=== PATIENT | female | born 1995 | race Caucasian/White ===

== ENCOUNTER 2019-04-03 23:16 | Observation (INO) | payer MEDICAID, OTHER ==
[~2019-04-03] VITALS: Ht 152.4 cm; Wt 56.7 kg
[2019-04-03] MEDS ORDERED: PREN1TAB78 MT (23:37)
[2019-04-03] MEDS ORDERED: FOLI-43 MT (23:37)
[2019-04-03] MEDS ORDERED: FERR-71 MT (23:37)
[2019-04-04 00:26] LABS: CLARITY URINE CLEAR (CLEAR); COLOR URINE YELLOW (YELLOW); KETONES URINE NEGATIVE (NEGATIVE); LEUKOCYTE ESTERASE URINE NEGATIVE (NEGATIVE); NITRITE URINE NEGATIVE (NEGATIVE); OCCULT BLOOD URINE NEGATIVE (NEGATIVE); PH URINE 6.5 (4.5-8.0); PROTEIN URINE NEGATIVE (NEGATIVE); SPECIFIC GRAVITY URINE 1.003 (1.005-1.030); UROBILINOGEN URINE 0.2 E.U./dL (0.2-1.0)
== END 2019-04-04 01:04 | disposition home or self-care (01) ==
LOC: 8 EST LDRP 23:16
PROVIDERS: ADMIT Obstetrics & Gynecology; ATTEND Obstetrics & Gynecology
DX: O26.893 Other specified pregnancy related conditions, third trimester (principal); R35.0 Frequency of micturition; R10.30 Lower abdominal pain, unspecified; Z3A.33 33 weeks gestation of pregnancy
CPT/HCPCS: 81003; 99281; G0378

== ENCOUNTER 2019-05-14 14:52 | Observation (INO) | payer OTHER ==
[~2019-05-14] VITALS: Ht 152.4 cm; Wt 63.5 kg
[~2019-05-14 14:52] MED LIST: FERR-71 MT; FOLI-43 MT; PREN1TAB78 MT
== END 2019-05-14 16:25 | disposition home or self-care (01) ==
LOC: 8 EST LDRP 14:52
PROVIDERS: ADMIT Obstetrics & Gynecology; ATTEND Obstetrics & Gynecology
DX: O16.3 Unspecified maternal hypertension, third trimester (principal); Z3A.38 38 weeks gestation of pregnancy
CPT/HCPCS: 99281; G0378

== ENCOUNTER 2019-05-24 23:24 | Observation (INO) | payer OTHER ==
[~2019-05-24] VITALS: Ht 152.4 cm; Wt 63.0 kg
[2019-05-25] MEDS ORDERED: VITAMIN D (01:10)
[2019-05-25] MEDS ORDERED: PRENATAL VITAMINS (01:10)
[2019-05-25] MEDS ORDERED: FERROUS SULFATE (01:10)
[2019-05-25] MEDS ORDERED: FOLIC ACID (01:10)
[2019-05-25 01:55] LABS: BASOPHILS % 0.3 % (0.0-2.0); EOSINOPHILS % 0.3 % (0.0-5.0); HEMATOCRIT. 29.2 % (36.0-48.0); HEMOGLOBIN. 9.7 g/dL (12.0-16.0); LYMPHOCYTES % 28.9 % (20.0-50.0); MEAN CORPUSCULAR HEMOGLOBIN 28.4 pg (28.0-32.0); MEAN CORPUSCULAR VOLUME 85.3 fL (81.0-99.0); MEAN PLATELET VOLUME 9.5 fl (7.4-10.4); MONOCYTES % 7.1 % (2.0-8.0); NEUTROPHILS % 63.4 % (40.0-76.0); PLATELET 184 x1000/uL (130-400); RED BLOOD CELL COUNT 3.43 mill/uL (4.2-5.4); RED CELL DISTRIBUTION WIDTH 15.3 % (11.6-14.6)
[2019-05-25 01:56] LABS: CLARITY URINE CLEAR (CLEAR); COLOR URINE YELLOW (YELLOW); KETONES URINE NEGATIVE (NEGATIVE); LEUKOCYTE ESTERASE URINE NEGATIVE (NEGATIVE); NITRITE URINE NEGATIVE (NEGATIVE); OCCULT BLOOD URINE NEGATIVE (NEGATIVE); PROTEIN URINE NEGATIVE (NEGATIVE); SPECIFIC GRAVITY URINE 1.003 (1.005-1.030); UROBILINOGEN URINE 0.2 E.U./dL (0.2-1.0)
[2019-05-25 02:03] LABS: INR 0.9; PARTIAL THROMBOPLASTIN TIME 25.4 sec (23.4-31.0); PROTHROMBIN TIME 9.4 sec (9.6-11.0)
[2019-05-25 02:23] LABS: CHLORIDE 110 mEq/L (98-107)
[2019-05-25] MEDS ORDERED: [UNRECOGNIZED DRUG - OTHER] (03:18)
== END 2019-05-25 03:30 | disposition home or self-care (01) ==
LOC: 8 EST LDRP 23:24
PROVIDERS: ADMIT Obstetrics & Gynecology; ATTEND Obstetrics & Gynecology
DX: O36.8130 Decreased fetal movements, third trimester, not applicable or unspecified (principal); O48.0 Post-term pregnancy; O62.9 Abnormality of forces of labor, unspecified; O26.893 Other specified pregnancy related conditions, third trimester; R51 Headache; Z3A.42 42 weeks gestation of pregnancy
CPT/HCPCS: 36415; 76815; 76818; 80053; 81003; 84550; 85025; 85384; 85610; 85730; 99281; G0378

== ENCOUNTER 2019-05-26 18:05 | Inpatient (IN) | payer OTHER ==
[~2019-05-26] VITALS: Ht 152.4 cm; Wt 63.0 kg
[~2019-05-26 18:05] MED LIST changes: -FERR-71 MT; +FERROUS SULFATE; -FOLI-43 MT; +FOLIC ACID; -PREN1TAB78 MT; +PRENATAL VITAMINS; +VITAMIN D; +[UNRECOGNIZED DRUG - OTHER]
[2019-05-26] MEDS ORDERED: DEXT 5%/LR + PITOCIN 20UNITS/L 1,000 ML IV SCH (19:32)
[2019-05-26] MEDS ORDERED: DINOPROSTONE 10MG VAGINAL INSERT VG PRN (19:45)
[2019-05-26] MEDS ORDERED: NALOXONE HCL 0.4 MG/ML 1ML VIAL IM PRN (19:45)
[2019-05-26] MEDS ORDERED: LIDOCAINE HCL 1% 20ML VIAL (Pyxis) INJ INFIL SCH (19:45)
[2019-05-26] MEDS ORDERED: CARBOPROST TROMETHAMINE 250 MCG/ML AMPUL IM PRN (19:45)
[2019-05-26] MEDS ORDERED: METHYLERGONOVINE MALEATE 0.2 MG/ML IM PRN (19:45)
[2019-05-26] MEDS ORDERED: MISOPROSTOL 200MCG TABLET VG SCH (20:00)
[2019-05-26 20:32] LABS: CLARITY URINE CLOUDY (CLEAR); COLOR URINE YELLOW (YELLOW); KETONES URINE NEGATIVE (NEGATIVE); LEUKOCYTE ESTERASE URINE 3+ (NEGATIVE); NITRITE URINE NEGATIVE (NEGATIVE); OCCULT BLOOD URINE NEGATIVE (NEGATIVE); PH URINE 6.5 (4.5-8.0); PROTEIN URINE NEGATIVE (NEGATIVE); SPECIFIC GRAVITY URINE 1.009 (1.005-1.030); UROBILINOGEN URINE 0.2 E.U./dL (0.2-1.0)
[2019-05-26 20:39] LABS: BASOPHILS % 0.8 % (0.0-2.0); EOSINOPHILS % 0.7 % (0.0-5.0); HEMATOCRIT. 30.4 % (36.0-48.0); HEMOGLOBIN. 10.1 g/dL (12.0-16.0); LYMPHOCYTES % 26.4 % (20.0-50.0); MEAN CORPUSCULAR HEMOGLOBIN 28.2 pg (28.0-32.0); MEAN CORPUSCULAR VOLUME 85.2 fL (81.0-99.0); MEAN PLATELET VOLUME 9.9 fl (7.4-10.4); MONOCYTES % 6.5 % (2.0-8.0); NEUTROPHILS % 65.6 % (40.0-76.0); PLATELET 189 x1000/uL (130-400); RED BLOOD CELL COUNT 3.57 mill/uL (4.2-5.4); RED CELL DISTRIBUTION WIDTH 15.6 % (11.6-14.6)
[2019-05-26 20:46] LABS: *BARBITURATES SCREEN URINE NEGATIVE (NEGATIVE); *BENZODIAZEPINES SCREEN URINE NEGATIVE (NEGATIVE); *COCAINE SCREEN URINE NEGATIVE (NEGATIVE)
[2019-05-26 20:47] LABS: *AMPHETAMINES SCREEN URINE NEGATIVE (NEGATIVE); CANNABINOID URINE SCREEN NEGATIVE (NEGATIVE); INR 0.9; METHADONE URINE SCREEN NEGATIVE (NEGATIVE); OPIATES URINE SCREEN NEGATIVE (NEGATIVE); PARTIAL THROMBOPLASTIN TIME 25.1 sec (23.4-31.0); PHENCYCLIDINE URINE SCREEN NEGATIVE (NEGATIVE); PROTHROMBIN TIME 9.4 sec (9.6-11.0)
[2019-05-26] MEDS: LACTATED RINGERS 1,000 ML IV SCH (20:52)
[2019-05-26 21:13] LABS: HEPATITIS B SURFACE ANTIGEN NEGATIVE
[2019-05-27] MEDS: LACTATED RINGERS 1,000 ML IV SCH ×4 (00:23→19:17)
[2019-05-27] MEDS: BUTORPHANOL TARTRATE 2 MG/ML VIAL IV PRN ×2 (04:47→09:01)
[2019-05-27] MEDS ORDERED: ONDANSETRON HCL 4MG/2ML INJ IV PRN (09:45)
[2019-05-27] MEDS ORDERED: ROPIVACAINE HCL/PF EPIDURAL 200 ML EPI SCH (09:45)
[2019-05-27] MEDS: ACETAMINOPHEN 500MG TABLET PO PRN (17:38)
[2019-05-27] MEDS ORDERED: AMPICILLIN 2,000 MG in SODIUM CHLORIDE 0.9% 100 ML IV SCH (18:00)
[2019-05-27] MEDS ORDERED: GENTAMICIN 100MG PREMIX 50 ML IV SCH (20:00)
[2019-05-27] MEDS ORDERED: BUPIVACAINE HCL/PF 0.25% (2.5MG/ML) 10ML ONE (21:49)
[2019-05-27] MEDS ORDERED: BUPIVACAINE HCL/PF 0.5% (5MG/ML) 10ML ONE (21:49)
[2019-05-27] MEDS: AMPICILLIN 1,000 MG in SODIUM CHLORIDE 0.9% 50 ML IV SCH (23:34)
[2019-05-28] MEDS ORDERED: LIDOCAINE HCL 1% 20ML VIAL (Pyxis) INJ ONE (02:39)
[2019-05-28] MEDS ORDERED: LIDOCAINE HCL 1% 20ML VIAL (Pyxis) INJ INFIL SCH (02:45)
[2019-05-28] MEDS: ACETAMINOPHEN 500MG TABLET PO PRN (03:21)
[2019-05-28] MEDS ORDERED: DEXT 5%/LR + PITOCIN 20UNITS/L 1,000 ML IV SCH (03:28)
[2019-05-28] MEDS ORDERED: DIPHENHYDRAMINE 25MG CAPSULE PO PRN (03:30)
[2019-05-28] MEDS ORDERED: RHO(D) IMMUNE GLOBULIN 300 MCG/SYR IM PRN (03:30)
[2019-05-28] MEDS ORDERED: LANOLIN OINT 7GM TUBE TOP PRN (03:30)
[2019-05-28] MEDS ORDERED: BISACODYL 10MG SUPP PR PRN (03:30)
[2019-05-28] MEDS ORDERED: METHYLERGONOVINE MALEATE 0.2 MG/ML IM PRN (03:30)
[2019-05-28] MEDS ORDERED: IBUPROFEN 400MG TABLET PO PRN (03:30)
[2019-05-28] MEDS: IBUPROFEN 800MG TABLET PO PRN ×2 (03:43→11:16)
[2019-05-28] MEDS ORDERED: GENTAMICIN 80MG PREMIX 100 ML IV SCH (04:00)
[2019-05-28 05:10] VITALS: BP 115/57
[2019-05-28 05:55] VITALS: BP 117/59
[2019-05-28] MEDS: AMPICILLIN 1,000 MG in SODIUM CHLORIDE 0.9% 50 ML IV SCH (06:33)
[2019-05-28 07:44] VITALS: BP 98/53
[2019-05-28] MEDS: PRENATAL VIT/FE FUMARATE/FA TABLET PO SCH (09:04)
[2019-05-28 16:10] VITALS: BP 107/61
[2019-05-28 19:30] VITALS: BP 105/67
[2019-05-29 04:00] VITALS: BP 111/70
[2019-05-29] MEDS: IBUPROFEN 800MG TABLET PO PRN ×2 (05:39→15:49)
[2019-05-29 08:00] VITALS: BP 117/70
[2019-05-29 08:38] LABS: BASOPHILS % 0.2 % (0.0-2.0); EOSINOPHILS % 0.8 % (0.0-5.0); HEMATOCRIT. 21.8 % (36.0-48.0); HEMOGLOBIN. 7.1 g/dL (12.0-16.0); LYMPHOCYTES % 19.7 % (20.0-50.0); MEAN CORPUSCULAR HEMOGLOBIN 27.3 pg (28.0-32.0); MEAN CORPUSCULAR VOLUME 84.2 fL (81.0-99.0); MEAN PLATELET VOLUME 9.5 fl (7.4-10.4); MONOCYTES % 4.4 % (2.0-8.0); NEUTROPHILS % 74.9 % (40.0-76.0); PLATELET 153 x1000/uL (130-400); RED BLOOD CELL COUNT 2.59 mill/uL (4.2-5.4); RED CELL DISTRIBUTION WIDTH 15.6 % (11.6-14.6)
[2019-05-29] MEDS: PRENATAL VIT/FE FUMARATE/FA TABLET PO SCH (15:49)
[2019-05-29 16:50] VITALS: BP 109/72
[2019-05-29 19:30] VITALS: BP 129/63
[2019-05-30 04:00] VITALS: BP 120/67
[2019-05-30] MEDS: IBUPROFEN 800MG TABLET PO PRN (04:16)
[2019-05-30 09:00] VITALS: BP 100/66
== END 2019-05-30 12:30 | disposition home or self-care (01) | DRG 560 ==
LOC: OBSVTOIN 18:05 → 8 EST LDRP 18:05 → 8EST 05-28 06:24
PROVIDERS: ADMIT Obstetrics & Gynecology; ATTEND Obstetrics & Gynecology
PROC: 10E0XZZ Delivery of Products of Conception, External Approach (ICD-10-PCS; principal; 2019-05-28)
PROC: 0KQM0ZZ Repair Perineum Muscle, Open Approach (ICD-10-PCS; 2019-05-28)
PROC: 3E0R3BZ Introduction of Anesthetic Agent into Spinal Canal, Percutaneous Approach (ICD-10-PCS; 2019-05-28)
PROC: 00HU33Z Insertion of Infusion Device into Spinal Canal, Percutaneous Approach (ICD-10-PCS; 2019-05-28)
DX: O48.0 Post-term pregnancy (principal); D64.9 Anemia, unspecified; O70.1 Second degree perineal laceration during delivery; O99.02 Anemia complicating childbirth; Z37.0 Single live birth; Z3A.40 40 weeks gestation of pregnancy; Z79.899 Other long term (current) drug therapy
CPT/HCPCS: 36415; 80305; 81003; 82565; 84520; 86592; 86703; 86762; 86850; 86900; 87340; G0378; J0290; J0595; J1580; J2590; J2795; J3490; J7050; A4315